=== PATIENT | male | born 1940 | race Hispanic/Latino ===

== ENCOUNTER 2017-11-26 10:43 | Outpatient (CLI) | payer MEDICARE ==
--- NOTE | 2017-11-26 17:33 | XRay Report ---
FINAL REPORT EXAM: XR FOOT BILAT 3+V HISTORY: BILATERAL FOOT PAIN TECHNIQUE: . AP, lateral, and oblique views of each foot PRIORS: None. FINDINGS: There is no evidence for acute fracture or dislocation. No soft tissue swelling or radiopaque foreign bodies are seen. Bony mineralization is normal. Joint spaces are maintained. Large spurs are present off the plantar and posterior aspects of calcaneus on the left and off the plantar aspect of the right calcaneus. IMPRESSION: No acute soft tissue or bony abnormality noted. Bony spurs off of each calcaneus.
== END 2017-11-26 10:44 | disposition home or self-care (01) ==
LOC: SPVIMAG 10:43
PROVIDERS: ATTEND Orthopaedic Surgery Sports Medicine
DX: M77.32 Calcaneal spur, left foot (principal); M77.31 Calcaneal spur, right foot